=== PATIENT | male | born 1980 | race Caucasian/White ===

== ENCOUNTER 2017-11-22 13:58 | Inpatient (IN) ==
[2017-11-22] MEDS ORDERED: metroNIDAZOLE INJ 500 MG in PREMIX 1 EACH IV SCH (14:30)
[2017-11-22] MEDS ORDERED: CLINDAMYCIN INJ 600 MG in PREMIX 1 EACH IV SCH (15:00)
[2017-11-22 15:25] LABS: Basophils # 0.1 10*3/uL (0.0-0.2); Basophils % 0.4 % (0.0-0.8); Eosinophils # 0.3 10*3/uL (0.0-0.87); Eosinophils % 1.6 % (0.00-10.9); Hematocrit 41.5 VOL% (42.0-52.0); Immature Granulocytes Absolute 0.17 #; Lymphocytes # 3.1 10*3/uL (1.4-4.0); Lymphocytes % 17.7 % (21.2-54.2); Mean Corpuscular HGB Conc 33.7 GM/DL (32-36); Mean Corpuscular Hemoglobin 32 PG (27-34); Mean Corpuscular Volume 94.5 FL (87-102); Mean Platelet Volume 8.7 FL (9.6-12.0); Monocytes # 1.7 10*3/uL (0.11-0.8); Neutrophils # 12.1 10*3/uL (1.4-7.4); Neutrophils % 69.3 % (38.7-73.9); Platelet Count 287 T/CUMM (130-400); Red Blood Count 4.39 MC/CUMM (3.8-5.5); Red Cell Distribution Width 12.6 % (9.3-17.3); White Blood Count 17.4 T/CUMM (4-12)
[2017-11-22 15:35] LABS: INR 0.9; PT Patient Result 9.6 SECS; Partial Thromboplastin Time 30.8 SECS (0-40)
[2017-11-22 15:49] LABS: Albumin 3.9 G/DL (3.4-5.0); Bilirubin,Total 0.5 MG/DL (0.2-1.0); Calcium 9.3 MG/DL (8.5-10.1); Total Protein 7.7 G/DL (6.4-8.3)
[2017-11-22 15:50] LABS: Osmolality,Calculated 275.5 MOS/KG (273-304); Potassium 3.8 MMOL/L (3.5-5.1)
[2017-11-22] MEDS ORDERED: ALUMINUM/MAGNES/SIMETH MAX STR 30 ML UDCUP PO PRN (16:02)
[2017-11-22] MEDS ORDERED: ONDANSETRON 4 MG/2 ML VIAL IV PRN (16:02)
[2017-11-22] MEDS ORDERED: BISACODYL 5 MG TABLET PO PRN (16:02)
[2017-11-22] MEDS ORDERED: CHLORHEXIDINE 4% SOLN 118 ML BOTTLE TOP ONE (16:08)
[2017-11-22] MEDS ORDERED: fentaNYL 50 MCG/HR PATCH TRANSDERM SCH (16:30)
[2017-11-22] MEDS: HYDROmorphone 2 MG/1 ML VIAL IV PRN ×2 (16:46→22:37)
[2017-11-22] MEDS: SODIUM CHLORIDE 0.9% 1,000 ML IV SCH (16:48)
[2017-11-22] MEDS: metroNIDAZOLE INJ 500 MG in PREMIX 1 EACH IV SCH (17:11)
[2017-11-22] MEDS: MEROPENEM 1,000 MG in SYRINGE 1 EACH IV SCH (17:36)
[2017-11-22] MEDS: CLINDAMYCIN INJ 600 MG in PREMIX 1 EACH IV SCH (19:18)
[2017-11-22] MEDS: BACLOFEN 10 MG TABLET PO SCH (20:37)
[2017-11-22] MEDS: DOCUSATE SODIUM 100 MG CAPSULE PO SCH (20:37)
[2017-11-22] MEDS: MIRTAZAPINE 15 MG TABLET PO SCH (20:37)
[2017-11-22] MEDS: ACETAMINOPHEN 325 MG TABLET PO PRN (22:21)
[2017-11-23] MEDS: MEROPENEM 1,000 MG in SYRINGE 1 EACH IV SCH ×3 (00:56→17:57)
[2017-11-23] MEDS: CLINDAMYCIN INJ 600 MG in PREMIX 1 EACH IV SCH ×4 (00:57→19:59)
[2017-11-23] MEDS: metroNIDAZOLE INJ 500 MG in PREMIX 1 EACH IV SCH ×3 (01:46→17:57)
[2017-11-23] MEDS: HYDROmorphone 2 MG/1 ML VIAL IV PRN ×7 (03:10→21:45)
[2017-11-23] MEDS ORDERED: CLINDAMYCIN INJ 900 MG in PREMIX 1 EACH IV ONE (07:00)
[2017-11-23] MEDS: ACETAMINOPHEN 325 MG TABLET PO PRN (07:39)
[2017-11-23] MEDS: SODIUM CHLORIDE 0.9% 1,000 ML IV SCH ×3 (08:20→23:12)
[2017-11-23] MEDS: ARIPiprazole 10 MG TABLET PO SCH (10:06)
[2017-11-23] MEDS: SODIUM HYPOCHLORITE 0.25% IRRIG 473 ML BOTTLE TOP SCH (10:07)
[2017-11-23] MEDS: BACLOFEN 10 MG TABLET PO SCH ×3 (10:07→20:03)
[2017-11-23] MEDS: VENLAFAXINE 100 MG TABLET PO SCH (10:07)
[2017-11-23] MEDS: DOCUSATE SODIUM 100 MG CAPSULE PO SCH ×2 (10:07→20:02)
[2017-11-23] MEDS: fentaNYL 50 MCG/HR PATCH TRANSDERM SCH ×2 (10:07→20:11)
[2017-11-23] MEDS: PANTOPRAZOLE 40 MG TABLET PO SCH (10:08)
[2017-11-23] MEDS ORDERED: BUPIVACAINE 0.25% 50 ML VIAL ONE (13:09)
[2017-11-23] MEDS ORDERED: LIDOCAINE 1%/EPI INJ 20 ML VIAL ONE (13:09)
[2017-11-23] MEDS ORDERED: MIDAZOLAM 2 MG/2 ML VIAL ONE (16:15)
[2017-11-23] MEDS ORDERED: ROCURONIUM 100 MG/10 ML VIAL IV ONE (16:15)
[2017-11-23] MEDS ORDERED: ONDANSETRON 4 MG/2 ML VIAL ONE ×2 (16:15→16:33)
[2017-11-23] MEDS ORDERED: SEVOFLURANE 1 UNIT/15 MINUTE INH ONE (16:15)
[2017-11-23] MEDS ORDERED: PROPOFOL 200 MG/20 ML VIAL IV ONE (16:15)
[2017-11-23] MEDS ORDERED: HYDROmorphone 2 MG/1 ML VIAL ONE (16:33)
[2017-11-23] MEDS ORDERED: ONDANSETRON 4 MG/2 ML VIAL IV PRN (16:38)
[2017-11-23] MEDS ORDERED: HYDROmorphone 2 MG/1 ML VIAL IV PRN (16:38)
[2017-11-23] MEDS: MIRTAZAPINE 15 MG TABLET PO SCH (20:03)
[2017-11-24] MEDS: MEROPENEM 1,000 MG in SYRINGE 1 EACH IV SCH ×2 (00:10→09:32)
[2017-11-24] MEDS: CLINDAMYCIN INJ 600 MG in PREMIX 1 EACH IV SCH ×3 (00:17→14:24)
[2017-11-24] MEDS: metroNIDAZOLE INJ 500 MG in PREMIX 1 EACH IV SCH ×2 (01:53→09:37)
[2017-11-24] MEDS: HYDROmorphone 2 MG/1 ML VIAL IV PRN ×3 (01:58→09:30)
[2017-11-24 06:09] LABS: Basophils % 0.3 % (0.0-0.8); Eosinophils # 0.1 10*3/uL (0.0-0.87); Eosinophils % 0.6 % (0.00-10.9); Hematocrit 35.8 VOL% (42.0-52.0); Hemoglobin 12.6 GM/DL (14.0-18.0); Immature Granulocytes % 0.6 %; Immature Granulocytes Absolute 0.09 #; Lymphocytes # 3.3 10*3/uL (1.4-4.0); Lymphocytes % 21.5 % (21.2-54.2); Mean Corpuscular HGB Conc 35.2 GM/DL (32-36); Mean Corpuscular Hemoglobin 32 PG (27-34); Mean Corpuscular Volume 91.1 FL (87-102); Mean Platelet Volume 8.9 FL (9.6-12.0); Monocytes # 1.7 10*3/uL (0.11-0.8); Monocytes % 11.2 % (1.7-12.7); Neutrophils % 65.8 % (38.7-73.9); Platelet Count 286 T/CUMM (130-400); Red Blood Count 3.93 MC/CUMM (3.8-5.5); Red Cell Distribution Width 12.3 % (9.3-17.3); White Blood Count 15.1 T/CUMM (4-12)
[2017-11-24 06:35] LABS: Calcium 8.1 MG/DL (8.5-10.1); Potassium 3.6 MMOL/L (3.5-5.1)
[2017-11-24] MEDS: VENLAFAXINE 100 MG TABLET PO SCH (09:36)
[2017-11-24] MEDS: BACLOFEN 10 MG TABLET PO SCH (09:36)
[2017-11-24] MEDS: DOCUSATE SODIUM 100 MG CAPSULE PO SCH (09:37)
[2017-11-24] MEDS: ARIPiprazole 10 MG TABLET PO SCH (09:37)
[2017-11-24] MEDS: PANTOPRAZOLE 40 MG TABLET PO SCH (09:37)
[2017-11-24] MEDS: SODIUM HYPOCHLORITE 0.25% IRRIG 473 ML BOTTLE TOP SCH (09:38)
[2017-11-24 11:13] VITALS: BP 159/86
[2017-11-24] MEDS: SODIUM CHLORIDE 0.9% 1,000 ML IV SCH (14:24)
== END 2017-11-24 15:20 | disposition home health service (06) | DRG 902 ==
LOC: N.3E 14:27
PROVIDERS: ADMIT Specialist; ATTEND Specialist

== ENCOUNTER 2018-03-19 10:44 | Observation (INO) ==
[2018-03-19 12:10] LABS: Basophils # 0.1 10*3/uL (0.0-0.2); Basophils % 0.5 % (0.0-0.8); Eosinophils # 0.2 10*3/uL (0.0-0.87); Eosinophils % 1.7 % (0.00-10.9); Hematocrit 45.6 VOL% (42.0-52.0); Hemoglobin 15.3 GM/DL (14.0-18.0); Immature Granulocytes % 0.7 %; Immature Granulocytes Absolute 0.09 #; Lymphocytes # 3.7 10*3/uL (1.4-4.0); Lymphocytes % 29.2 % (21.2-54.2); Mean Corpuscular HGB Conc 33.6 GM/DL (32-36); Mean Corpuscular Hemoglobin 31 PG (27-34); Mean Corpuscular Volume 92.9 FL (87-102); Mean Platelet Volume 8.6 FL (9.6-12.0); Monocytes # 0.9 10*3/uL (0.11-0.8); Monocytes % 6.6 % (1.7-12.7); Neutrophils # 7.9 10*3/uL (1.4-7.4); Neutrophils % 61.3 % (38.7-73.9); Platelet Count 316 T/CUMM (130-400); Red Blood Count 4.91 MC/CUMM (3.8-5.5); Red Cell Distribution Width 12.6 % (9.3-17.3); White Blood Count 12.8 T/CUMM (4-12)
[2018-03-19 12:37] LABS: Calcium 8.8 MG/DL (8.5-10.1); Osmolality,Calculated 275.4 MOS/KG (273-304); Potassium 3.6 MMOL/L (3.5-5.1)
[2018-03-19] MEDS ORDERED: ONDANSETRON 4 MG/2 ML VIAL IV PRN (16:38)
[2018-03-19] MEDS ORDERED: MORPHINE 4 MG/1 ML VIAL IV PRN (16:38)
[2018-03-19] MEDS ORDERED: fentaNYL 50 MCG/HR PATCH TRANSDERM SCH (17:00)
[2018-03-19] MEDS: SODIUM CHLORIDE 0.9% 1,000 ML IV SCH (17:37)
[2018-03-19] MEDS: VANCOMYCIN INJ 1,750 MG in SODIUM CHLORIDE 0.9% 500 ML IV SCH (17:37)
[2018-03-19 18:06] LABS: Thyroid Stimulating Hormone 0.315 uIU/ml (0.358-3.74); VLDL CHOLESTEROL 48.6 MG/DL
[2018-03-19 20:04] LABS: Apearance,Urine Slightly Hazy (Clear); Bacteria,Urine Occasional /HPF (Few); Bilirubin,Urine Negative (Negative); Blood, Urine Negative (Negative); Calcium Oxalate Crystals,Urine Many /HPF (Few); Glucose,Urine (UA) Negative (Negative); Ketones,Urine Negative (Negative); Mucus,Urine Occasional /LPF (Occasional); Nitrite,Urine Negative (Negative); Protein,Urine Negative; RBC,Urine 1 /HPF (0-4); Urine Color Yellow (Yellow); Urine Specific Gravity 1.015 (1.001-1.035); WBC,Urine 1 /HPF (0-6)
[2018-03-19] MEDS: BACLOFEN 10 MG TABLET PO SCH (20:59)
[2018-03-19] MEDS: oxyCODONE/ACETAMINOPHEN 5-325 MG TABLET PO SCH (20:59)
[2018-03-19] MEDS ORDERED: ENOXAPARIN 40 MG/0.4 ML SYRINGE SUBCUT SCH (21:00)
[2018-03-19] MEDS ORDERED: MIRTAZAPINE 30 MG TABLET PO SCH (21:00)
[2018-03-20] MEDS: VANCOMYCIN INJ 1,750 MG in SODIUM CHLORIDE 0.9% 500 ML IV SCH ×2 (00:56→10:31)
[2018-03-20 03:40] LABS: Basophils # 0.1 10*3/uL (0.0-0.2); Basophils % 0.6 % (0.0-0.8); Eosinophils # 0.3 10*3/uL (0.0-0.87); Eosinophils % 3.1 % (0.00-10.9); Hematocrit 40.7 VOL% (42.0-52.0); Immature Granulocytes % 1.1 %; Lymphocytes # 3.7 10*3/uL (1.4-4.0); Lymphocytes % 39.8 % (21.2-54.2); Mean Corpuscular HGB Conc 34.4 GM/DL (32-36); Mean Corpuscular Hemoglobin 32 PG (27-34); Mean Corpuscular Volume 92.3 FL (87-102); Mean Platelet Volume 9.1 FL (9.6-12.0); Monocytes # 0.8 10*3/uL (0.11-0.8); Monocytes % 8.4 % (1.7-12.7); Neutrophils # 4.4 10*3/uL (1.4-7.4); Platelet Count 307 T/CUMM (130-400); Red Blood Count 4.41 MC/CUMM (3.8-5.5); Red Cell Distribution Width 12.7 % (9.3-17.3); White Blood Count 9.4 T/CUMM (4-12)
[2018-03-20 04:03] LABS: Calcium 8.7 MG/DL (8.5-10.1); Osmolality,Calculated 282.3 MOS/KG (273-304); Potassium 3.6 MMOL/L (3.5-5.1)
[2018-03-20] MEDS ORDERED: VANCOMYCIN 1,000 MG VIAL ONE (06:19)
[2018-03-20] MEDS ORDERED: LIDOCAINE 1% 20 ML VIAL ONE (06:19)
[2018-03-20] MEDS ORDERED: ALBUTEROL/IPRATROPIUM 3 ML NEB RESP TX SCH (07:00)
[2018-03-20] MEDS ORDERED: PANTOPRAZOLE 40 MG TABLET PO SCH (09:00)
[2018-03-20] MEDS ORDERED: CHLORHEXIDINE 4% SOLN 118 ML BOTTLE TOP SCH (09:00)
[2018-03-20] MEDS ORDERED: ARIPiprazole 10 MG TABLET PO SCH (09:00)
[2018-03-20] MEDS ORDERED: VENLAFAXINE 100 MG TABLET PO SCH (09:00)
[2018-03-20] MEDS ORDERED: LISINOPRIL 10 MG TABLET PO SCH (09:00)
[2018-03-20 09:04] VITALS: BP 110/65
[2018-03-20] MEDS ORDERED: fentaNYL 100 MCG/2 ML VIAL ONE (09:14)
[2018-03-20] MEDS ORDERED: PROPOFOL 200 MG/20 ML VIAL IV ONE (09:14)
[2018-03-20] MEDS ORDERED: MIDAZOLAM 2 MG/2 ML VIAL ONE (09:15)
[2018-03-20] MEDS ORDERED: SODIUM CHLORIDE 0.9% 250 ML IV ONE (09:15)
[2018-03-20] MEDS: BACLOFEN 10 MG TABLET PO SCH (09:36)
[2018-03-20] MEDS: oxyCODONE/ACETAMINOPHEN 5-325 MG TABLET PO SCH (09:36)
[2018-03-20] MEDS: SODIUM CHLORIDE 0.9% 1,000 ML IV SCH (10:26)
[2018-03-22] MEDS ORDERED: fentaNYL 50 MCG/HR PATCH TRANSDERM SCH (09:00)
== END 2018-03-20 11:42 | disposition home or self-care (01) ==
LOC: N.EDINP 10:44 → N.ED 10:44 → N.EDINP 16:26 → N.3E 16:37
PROVIDERS: ADMIT Internal Medicine; ATTEND Internal Medicine